=== PATIENT | male | born 1965 | race Caucasian/White ===

== ENCOUNTER 2020-10-29 11:38 | Emergency (ER) | payer SELFPAY ==
--- NOTE | 2020-10-29 11:53 | ED Respiratory ---
General Chief Complaint: Respiratory Problems Stated Complaint: LUNG PAIN; SOB Source: patient History of Present Illness Date Seen by Provider: Oct 29, 2020 Time Seen by Provider: 11:53 Initial Comments 55-year-old male presenting with complaints of cough and shortness of breath. He states that for the last month he's been having difficulty with his breathing and having pain in his chest when he coughs and breathes. He has been living out of his car and traveling from city to city looking for jobs. He states that about a month ago he was in [facility] and treated for sinusitis with amoxicillin. At that time he felt like he was improving. He does smoke at least a pack a day. He reports he has had loss of taste and smell for at least the last month. He also was having swollen lymph nodes and sinus pressure and congestion with post things improved when he took the course of amoxicillin from [facility]. In the last several days he's had increasing cough and felt like he was having a lot of congestion especially when he first wakes up in the morning in his car. He felt like he had a fever this morning so he did not go into the job that he just got here in [place]. He had only worked at the new job for 1 day. He states that the congestion and phlegm he is coughing up now has a green and yellow color to it. Allergies and Home Medications Allergies Coded Allergies: No Known Drug Allergies (Unverified , 10/29/20) Home Medications Albuterol Sulfate 1 Puff Puff, 2 PUFF IH Q6H PRN for SHORTNESS OF BREATH 1 PUFF = 90 MCG Prescribed by: ACE HUGGINS on 10/29/20 1349 Azithromycin 500 Mg Tablet, 500 MG PO DAILY Prescribed by: ACE HUGGINS on 10/29/20 1349 Prednisone 20 Mg Tab, 40 MG PO DAILY Prescribed by: ACE HUGGINS on 10/29/20 1349 Patient Home Medication List Home Medication List Reviewed: Yes Review of Systems Review of Systems Constitutional: chills, fever, malaise EENTM: ear pain, hoarseness, nose congestion; No ear discharge, No epistaxis Respiratory: cough, dyspnea on exertion; No hemoptysis; phlegm (yellow and green); No stridor; wheezing Cardiovascular: chest pain (lung pain with cough); No edema Gastrointestinal: diarrhea, loss of appetite, nausea; No vomiting Genitourinary: no symptoms reported Musculoskeletal: muscle pain (generalized muscle aches) Skin: No rash Psychiatric/Neurological: Anxiety, Headache (intermittent), Weakness (generalized) Past Yyqaaga-Vfgxww-Zlhmqg Hx Past Med/Social Hx: Reviewed Nursing Past Med/Soc Hx Patient Social History Alcohol Use: Occasionally Uses Recreational Drug Use: No Smoking Status: Current Everyday Smoker Type Used: Cigarettes 2nd Hand Smoke Exposure: Yes Recent Foreign Travel: No Contact w/Someone Who Travel: No Recent Hopitalizations: No Seasonal Allergies Seasonal Allergies: No Past Medical History Surgeries: Yes Appendectomy Respiratory: No Cardiac: No Neurological: No Genitourinary: No Gastrointestinal: Yes (bleeding ulcer) Musculoskeletal: No Endocrine: No HEENT: No Cancer: No Psychosocial: No Integumentary: No Blood Disorders: No Adverse Reaction/Blood Tranf: No Physical Exam Vital Signs - First Documented 10/29/20 11:47 Temp 36.6 Pulse 103 Resp 16 B/P (MAP) 110/77 (88) Pulse Ox 98 Capillary Refill : Height: '" Weight: lbs. oz. 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, no motor/sensory deficits, alert Skin: normal color, warm/dry; No rash Progress/Results/Core Measures Suspected Sepsis SIRS Temperature: Pulse: Respiratory Rate: Laboratory Tests 10/29/20 12:53: White Blood Count 15.6H Blood Pressure / Mean: Laboratory Tests 10/29/20 12:53: Creatinine 0.74, Platelet Count 371, Total Bilirubin 0.2 Results/Orders Lab Results Laboratory Tests Test 10/29/20 12:53 Range/Units White Blood Count 15.6 H 4.3-11.0 10^3/uL Red Blood Count 4.41 4.35-5.85 10^6/uL Hemoglobin 14.5 13.3-17.7 G/DL Hematocrit 42 40-54 % Mean Corpuscular Volume 96 80-99 FL Mean Corpuscular Hemoglobin 33 25-34 PG Mean Corpuscular Hemoglobin Concent 34 32-36 G/DL Red Cell Distribution Width 14.3 10.0-14.5 % Platelet Count 371 130-400 10^3/uL Mean Platelet Volume 8.8 7.4-10.4 FL Immature Granulocyte % (Auto) 1 % Neutrophils (%) (Auto) 82 H 42-75 % Lymphocytes (%) (Auto) 8 L 12-44 % Monocytes (%) (Auto) 8 0-12 % Eosinophils (%) (Auto) 1 0-10 % Basophils (%) (Auto) 1 0-10 % Neutrophils # (Auto) 12.8 H 1.8-7.8 X 10^3 Lymphocytes # (Auto) 1.3 1.0-4.0 X 10^3 Monocytes # (Auto) 1.2 H 0.0-1.0 X 10^3 Eosinophils # (Auto) 0.2 0.0-0.3 10^3/uL Basophils # (Auto) 0.1 0.0-0.1 10^3/uL Immature Granulocyte # (Auto) 0.1 0.0-0.1 10^3/uL Neutrophils % (Manual) 57 % Lymphocytes % (Manual) 10 % Monocytes % (Manual) 5 % Eosinophils % (Manual) 0 % Basophils % (Manual) 1 % Metamyelocytes % 1 % Band Neutrophils 26 % Blood Morphology Comment NORMAL Sodium Level 139 135-145 MMOL/L Potassium Level 4.2 3.6-5.0 MMOL/L Chloride Level 103 98-107 MMOL/L Carbon Dioxide Level 25 21-32 MMOL/L Anion Gap 11 5-14 MMOL/L Blood Urea Nitrogen 11 7-18 MG/DL Creatinine 0.74 0.60-1.30 MG/DL Estimat Glomerular Filtration Rate > 60 BUN/Creatinine Ratio 15 Glucose Level 93 70-105 MG/DL Calcium Level 8.8 8.5-10.1 MG/DL Corrected Calcium 8.8 8.5-10.1 MG/DL Total Bilirubin 0.2 0.1-1.0 MG/DL Aspartate Amino Transf (AST/SGOT) 37 H 5-34 U/L Alanine Aminotransferase (ALT/SGPT) 24 0-55 U/L Alkaline Phosphatase 99 40-136 U/L Total Protein 7.8 6.4-8.2 GM/DL Albumin 4.0 3.2-4.5 GM/DL My Orders Orders - ACE HUGGINS MD Ed Iv/Invasive Line Start (10/29/20 12:13) Cbc With Automated Diff (10/29/20 12:13) Comprehensive Metabolic Panel (10/29/20 12:13) Ns Iv 1000 Ml (Sodium Chloride 0.9%) (10/29/20 12:15) Sputum Culture (10/29/20 12:13) Chest 1 View Ap/Pa Only (10/29/20 12:13) Methylprednisolone Sod Succ (Solu-Medrol (10/29/20 12:15) Albuterol/Ipra Inhalation Soln (Duoneb I (10/29/20 12:15) Svn Small Volume Nebulizer (10/29/20 12:15) Manual Differential (10/29/20 12:53) Azithromycin Tablet (Zithromax Tablet) (10/29/20 13:52) Coronavirus Sars-Cov-2 So 2018 (10/29/20 13:55) Vital Signs/I&O 10/29/20 10/29/20 11:47 14:12 Temp 36.6 Pulse 103 77 Resp 16 18 B/P (MAP) 110/77 (88) 122/64 Pulse Ox 98 98 Capillary Refill : Progress Note #1: Progress Note check basic labs as well as chest x-ray. Since the patient feels like he is dizzy and weak as well as try giving some IV fluids. He states he has been having diarrhea so the fluid should help with that. Will check his electrolytes to make sure he has no being electrolyte imbalance from the diarrhea. try dose of steroids since he has been a smoker for years since he was 10 years old. Try a DuoNeb breathing treatment to see if that helps with his chest pain and cough. Order a sputum culture in case he coughs anything up. Anticipate treating him for infection depending on his of evaluation and chest x-ray. Progress Note #2: Progress Note his labs show an elevated white blood cell count 15.6 with a left shift. His chest x-ray was clear without any acute significant abnormality. chemistry did not show any acute significant abnormality either. Will cover with antibiotics and give note to have him stay off work until his COVID results come back. Diagnostic Imaging Diagonstic Imaging: Xray Plain Films/CT/US/NM/MRI: chest Comments [facility] [place] NAME: SAMANTHA GROSS [facility] REC#: [id number] PT STATUS: REG ER : 1965 PHYSICIAN: ACE HUGGINS MD ADMIT DATE: 10/29/20/ER FS Draft Date of Exam:10/29/20 CHEST 1 VIEW AP/PA ONLY INDICATION: cough, short of breath COMPARISON: None. FINDINGS: Two frontal radiographic views of the chest were obtained and demonstrate normal heart size and pulmonary vascularity. The lungs are well aerated and clear. No large pleural effusion or pneumothorax is seen. The visualized osseous structures show no acute abnormalities. IMPRESSION: 1. No acute cardiopulmonary process. Dictated on workstation # [id number] Dict: 10/29/20 1238 Trans: 10/29/20 1240 AS6 [id number] Interpreted by: MICHELLE FREED MD Electronically signed by: Departure Impression Primary Impression: Upper respiratory infection with cough and congestion Additional Impression: Tobacco abuse Disposition: 01 HOME, SELF-CARE Condition: Stable Departure-Patient Inst. Decision time for Depature: 13:51 Referrals: NO,LOCAL PHYSICIAN (PCP) Primary Care Physician [facility] Patient Instructions: Bacterial Upper Respiratory Infection, Adult (DC), How to Use Your Metered Dose Inhaler (Adults), How to Use a Spacer, Quitting Smoking Add. Discharge Instructions: Stop smoking. Take the full course of antibiotics and steroids to help with cough and congestion. Follow up with [facility] for continued care if you have more problems or further concerns. Stay isolated from others and away from work until you have negative Covid-19 results from today. All discharge instructions reviewed with patient and/or family. Voiced understanding. Scripts Albuterol Sulfate (PROAIR HFA) 1 Puff Puff 2 PUFF IH Q6H PRN for SHORTNESS OF BREATH for 30 Days, #1 INHALER 0 Refills 1 PUFF = 90 MCG Prov: ACE HUGGINS MD 10/29/20 Prednisone (Prednisone) 20 Mg Tab 40 MG PO DAILY for 5 Days, #10 TAB 0 Refills Prov: ACE HUGGINS MD 10/29/20 Azithromycin (Azithromycin) 500 Mg Tablet 500 MG PO DAILY for 5 Days, #5 TAB 0 Refills Prov: ACE HUGGINS MD 10/29/20 Work/School Note: Work Release Form Date Seen in the Emergency Department: Oct 29, 2020 Return to Work: Nov 03, 2020 Restrictions: No Restrictions ACE HUGGINS MD Oct 29, 2020 11:53
[2020-10-29] MEDS ORDERED: methylPREDNISolone 125 MG (Solu-MEDROL) VIAL IVP STA (12:15)
[2020-10-29] MEDS ORDERED: NS IV 1000 ML 1,000 ML IV SCH (12:15)
[2020-10-29] MEDS ORDERED: RT-ALBUTEROL/IPRATROPIUM 3 ML (DUONEB) VIAL INH STA (12:15)
--- NOTE | 2020-10-29 12:40 | Diagnostic Imaging Report ---
INDICATION: cough, short of breath COMPARISON: None. FINDINGS: Two frontal radiographic views of the chest were obtained and demonstrate normal heart size and pulmonary vascularity. The lungs are well aerated and clear. No large pleural effusion or pneumothorax is seen. The visualized osseous structures show no acute abnormalities. IMPRESSION: 1. No acute cardiopulmonary process. Dictated by: Dictated on workstation # [id number]
[2020-10-29 13:15] LABS: BASOPHILS # (AUTO) 0.1 10^3/uL (0.0-0.1); BASOPHILS % (AUTO) 1 % (0-10); EOSINOPHILS # (AUTO) 0.2 10^3/uL (0.0-0.3); EOSINOPHILS % (AUTO) 1 % (0-10); HEMATOCRIT 42 % (40-54); HEMOGLOBIN 14.5 G/DL (13.3-17.7); LYMPHOCYTES # (AUTO) 1.3 X 10^3 (1.0-4.0); LYMPHOCYTES % (AUTO) 8 % (12-44); MEAN CORPUSCULAR HEMOGLOBIN 33 PG (25-34); MEAN CORPUSCULAR HGB CONC 34 G/DL (32-36); MEAN CORPUSCULAR VOLUME 96 FL (80-99); MEAN PLATELET VOLUME 8.8 FL (7.4-10.4); MONOCYTES # (AUTO) 1.2 X 10^3 (0.0-1.0); MONOCYTES % (AUTO) 8 % (0-12); NEUTROPHILS # (AUTO) 12.8 X 10^3 (1.8-7.8); NEUTROPHILS % (AUTO) 82 % (42-75); PLATELET COUNT 371 10^3/uL (130-400); WHITE BLOOD COUNT 15.6 10^3/uL (4.3-11.0)
[2020-10-29 13:35] LABS: CARBON DIOXIDE 25 MMOL/L (21-32); CHLORIDE 103 MMOL/L (98-107); POTASSIUM 4.2 MMOL/L (3.6-5.0); SODIUM 139 MMOL/L (135-145)
[2020-10-29 13:36] LABS: ALANINE AMINOTRANSFERASE 24 U/L (0-55); ALKALINE PHOSPHATASE 99 U/L (40-136); BILIRUBIN,TOTAL 0.2 MG/DL (0.1-1.0); BUN/CREATININE RATIO 15; CALCIUM 8.8 MG/DL (8.5-10.1); CREATININE SERUM 0.74 MG/DL (0.60-1.30); GFR ESTIMATED > 60; GLUCOSE 93 MG/DL (70-105); TOTAL PROTEIN 7.8 GM/DL (6.4-8.2)
[2020-10-29] MEDS ORDERED: RT-ALBUINH IH (13:49)
[2020-10-29] MEDS ORDERED: AZIT500T9 PO (13:49)
[2020-10-29] MEDS ORDERED: PRD20T PO (13:49)
[2020-10-29] MEDS ORDERED: AZITHROMYCIN 250 MG TAB (ZITHROMAX) PO STA (13:52)
[2020-10-29 14:12] VITALS: BP 122/64
[2020-10-29 14:33] LABS: BAND NEUTROPHILS 26 %; BASOPHILS % (MANUAL) 1 %; EOSINOPHILS % (MANUAL) 0 %; LYMPHOCYTES % (MANUAL) 10 %; METAMYELOCYTES % 1 %; MONOCYTES % (MANUAL) 5 %; NEUTROPHILS % (MANUAL) 57 %; RBC MORPH NORMAL
== END 2020-10-29 14:13 | disposition home or self-care (01) ==
LOC: ER FS 11:39
DX: J06.9 Acute upper respiratory infection, unspecified (principal); R09.89 Other specified symptoms and signs involving the circulatory and respiratory systems; F17.210 Nicotine dependence, cigarettes, uncomplicated; Z20.828 Contact with and (suspected) exposure to other viral communicable diseases; Z79.52 Long term (current) use of systemic steroids
CPT/HCPCS: 36415; 71045; 80053; 85007; 85027; 99284; U0002; 87635

== ENCOUNTER 2020-11-24 19:19 | Emergency (ER) | payer SELFPAY ==
[~2020-11-24] VITALS: Ht 175.2 cm; Wt 65.9 kg
[~2020-11-24 19:19] MED LIST: AZIT500T9 PO; PRD20T PO; RT-ALBUINH IH
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
[2020-11-24 20:51] LABS: BASOPHILS # (AUTO) 0.1 10^3/uL (0.0-0.1); BASOPHILS % (AUTO) 1 % (0-10); EOSINOPHILS # (AUTO) 0.1 10^3/uL (0.0-0.3); EOSINOPHILS % (AUTO) 2 % (0-10); HEMATOCRIT 43 % (40-54); HEMOGLOBIN 14.3 G/DL (13.3-17.7); LYMPHOCYTES # (AUTO) 2.3 X 10^3 (1.0-4.0); LYMPHOCYTES % (AUTO) 47 % (12-44); MEAN CORPUSCULAR HEMOGLOBIN 32 PG (25-34); MEAN CORPUSCULAR HGB CONC 33 G/DL (32-36); MEAN CORPUSCULAR VOLUME 97 FL (80-99); MEAN PLATELET VOLUME 9.1 FL (7.4-10.4); MONOCYTES # (AUTO) 0.4 X 10^3 (0.0-1.0); MONOCYTES % (AUTO) 8 % (0-12); NEUTROPHILS # (AUTO) 2.1 X 10^3 (1.8-7.8); NEUTROPHILS % (AUTO) 42 % (42-75); PLATELET COUNT 270 10^3/uL (130-400)
[2020-11-24 21:08] LABS: ALANINE AMINOTRANSFERASE 26 U/L (0-55); ALBUMIN 4.1 GM/DL (3.2-4.5); ALKALINE PHOSPHATASE 107 U/L (40-136); BILIRUBIN,TOTAL 0.2 MG/DL (0.1-1.0); BUN/CREATININE RATIO 13; CALCIUM 8.7 MG/DL (8.5-10.1); CARBON DIOXIDE 29 MMOL/L (21-32); CHLORIDE 104 MMOL/L (98-107); CREATININE SERUM 0.77 MG/DL (0.60-1.30); GFR ESTIMATED > 60; GLUCOSE 95 MG/DL (70-105); POTASSIUM 3.7 MMOL/L (3.6-5.0); SODIUM 144 MMOL/L (135-145); TOTAL PROTEIN 7.4 GM/DL (6.4-8.2)
--- NOTE | 2020-11-24 21:11 | Diagnostic Imaging Report ---
INDICATION: Cough. Shortness of breath. FINDINGS: There is hyperaeration of the lungs bilaterally. There is a focal infiltrate noted within the lingula. The remainder of the lungs are clear. The heart is not enlarged. No pneumothorax or pleural effusion. IMPRESSION: Findings consistent with focal lingular pneumonia. There is obstructive bilateral lung disease. Dictated by: Dictated on workstation # [id number]
--- NOTE | 2020-11-24 21:14 | Diagnostic Imaging Report ---
INDICATION: Bilateral foot pain. FINDINGS: 6 views. Both feet show good alignment. Articulating surfaces are smooth. Joint spaces are well-maintained. There are no fractures. No periosteal reactive changes. No destructive bony changes. There is no evidence of air within the soft tissues. IMPRESSION: Normal bilateral feet. Dictated by: Dictated on workstation # [id number]
[2020-11-24] MEDS ORDERED: NS IV 1000 ML 1,000 ML IV SCH (21:30)
[2020-11-24] MEDS ORDERED: LEVOFLOXACIN 750 MG/150 ML IV 150 ML IV ONE (21:30)
[2020-11-24] MEDS ORDERED: LEVO500T80 PO (22:09)
[2020-11-24 23:07] VITALS: BP 126/84
== END 2020-11-24 23:07 | disposition home or self-care (01) ==
LOC: EDUNIT# 19:19 → ER FS 19:20
DX: T69.021A Immersion foot, right foot, initial encounter (principal); T69.022A Immersion foot, left foot, initial encounter; J18.1 Lobar pneumonia, unspecified organism; F17.210 Nicotine dependence, cigarettes, uncomplicated; Z59.0 Homelessness
CPT/HCPCS: 36415; 71046; 80053; 83605; 85025; 87040